=== PATIENT | male | born 1965 | race Caucasian/White ===

== ENCOUNTER → 2016-11-29 | Outpatient (CLI) | payer BC ==
[~2016-11-29] MED LIST: METO-217 PO; PRVC/40 PO; WARF10TA4 PO
[2016-12-01 15:13] LABS: LEAD BLOOD 3 MCG/DL (0-9)
== END | disposition home or self-care (01) ==
LOC: C.LAB 09:16
PROVIDERS: ATTEND Internal Medicine
DX: E78.5 Hyperlipidemia, unspecified (principal); R20.0 Anesthesia of skin

== ENCOUNTER → 2016-12-06 | Outpatient (CLI) | payer BC | END | disposition home or self-care (01) | LOC: C.PATHSPEC 17:40 | PROVIDERS: ATTEND Dermatology | DX: L57.0 Actinic keratosis (principal) ==

== ENCOUNTER → 2017-11-29 | Outpatient (CLI) | payer OTHER ==
--- NOTE | 2017-11-29 14:42 | DIAGNOSTIC IMAGING REPORT ---
CHEST 2 VIEWS ROUTINE CLINICAL HISTORY: R06.02 Shortness of breath on exertion dyspnea COMPARISON STUDY: No previous studies for comparison. FINDINGS: The bones soft tissues and hemidiaphragms are normal. The cardiomediastinal silhouette is normal. The lungs are clear. The pulmonary vasculature is normal. IMPRESSION: Negative chest. The above report was generated using voice recognition software. It may contain grammatical, syntax or spelling errors. Electronically signed by: Homar Montanez M.D. 11/29/2017 2:41 PM Dictated Date/Time: 11/29/2017 2:40 PM
== END | disposition home or self-care (01) ==
LOC: C.LAB1850 14:29
PROVIDERS: ATTEND Internal Medicine
DX: R06.02 Shortness of breath (principal)

== ENCOUNTER 2022-11-08 06:49 | Observation (INO) ==
--- NOTE | 2022-10-10 14:44 | PAT Medication Instructions ---
Medication Instructions Date of Service October 10, 2022 Home Medications Medication Instructions Recorded warfarin 10 mg tablet See Rx Instructions PO UD #90 tabs 06/02/22 warfarin 2.5 mg tablet See Rx Instructions PO UD #50 tabs 06/02/22 Wheeled Walker #1 ea 07/28/22 warfarin 10 mg tablet See Rx Instructions PO UD warfarin 2.5 mg tablet See Rx Instructions PO UD atorvastatin 20 mg tablet (Lipitor) 20 mg PO QPM metoprolol succinate 25 mg tablet,extended release 24 hr 12.5 mg PO QAM ASK your prescriber and surgeon warfarin 10 mg tablet See Rx Instructions PO UD warfarin 2.5 mg tablet See Rx Instructions PO UD Take morning of surgery With a small sip of water, OTHERWISE NOTHING TO EAT OR DRINK AFTER MIDNIGHT: metoprolol succinate 25 mg tablet,extended release 24 hr 12.5 mg PO QAM Take evening before surgery atorvastatin 20 mg tablet (Lipitor) 20 mg PO QPM Other Notes If you have any questions please call us at [phone] or [phone] or [phone] or [phone]
--- NOTE | 2022-10-18 10:19 | Anesthesiology Consultation ---
Date of Service October 18, 2022 Assessment & Plan (1) Encounter for pre-operative examination: - Check coags AM DOS (warfarin instructions per surgeon/prescriber/coag clinic) - COVID screening: Per assessment on 10/18: No known COVID-19 positive contacts or current COVID-19 related symptoms. Travel screen negative. Patient vaccinated. Patient was Covid positive 08/11/22 (home test). Symptoms at time: fatigue, "flu-like" symptoms > resolved. Prescribed Paxlovid by PCP. Preop Covid test done at [facility] 10/18/22 was negative. - Outpatient joint assessment: Pt currently scheduled for inpatient pathway. If surgeon requests review for outpatient joint pathway, patient is not recommended candidate for outpatient joint program from anesthesia standpoint. - PCP visit (02/22/22): "Patient is overall medically stable but unfortunately has not been compliant with diet or exercise to help with weight loss. Stressed the importance of losing weight.. Recommend continue current medications at this time. Follow-up in 1 year or as needed... Cerebellar CVA and small occipital CVA September 2012-presumed etiology paroxysmal atrial fibrillation versus patent foramen ovale -continue current medical treatment. Continue anticoagulation therapy. Denies any significant bleeding complications. States he is compliant with treatment. He is followed by anticoagulation clinic.. Dilated aortic root-noted on stress echo October 18, 2017. Repeat echo during the summer of 2018 did not suggest any dilated aortic root.Echo 01/29/2021normal left ventricular systolic function, ejection fraction 55 to 60%, borderline aortic root dilatation, mildly dilated ascending aorta (4.2 cm)no change compared to study in 2019.. Paroxysmal atrial fibrillation-as noted above discussed his anticoagulation. Patient is compliant with treatment. Followed by the anticoagulation clinic. No significant bleeding complications. Patient denies palpitations or chest pain." Chart Review Chart Review: Acceptable Risk for Surgery and Patient seen in Pre Admission Te sting Teaching & Discussion Pre-Anesthesia Teaching/Discussion Notes: Instructed NPO after midnight before surgery,except medications with 15 cc of water. Medication instructions provided according to the [facility] guidelines. History Surgery Operation Date: 11/08/22 08:50 Proposed Procedures p Left Total Knee Arthroplasty - Umesh Blanc MD Height/Weight Height: 6 ft 5 in Weight: 143.6 kg Allergies Allergy/AdvReac Type Severity Reaction Status Date / Time No Known Allergies Allergy NONE Verified 10/10/22 13:35 Medications Home Medications Medication Instructions Recorded Confirmed Last Taken warfarin 10 mg tablet See Rx Instructions PO UD #90 tabs 06/02/22 10/10/22 Unknown warfarin 2.5 mg tablet See Rx Instructions PO UD #50 tabs 06/02/22 10/10/22 Unknown Wheeled Walker #1 ea 07/28/22 09/20/22 Unknown atorvastatin 20 mg tablet (Lipitor) 20 mg PO QPM 10/10/22 10/10/22 Unknown metoprolol succinate 25 mg 12.5 mg PO QAM 10/10/22 10/10/22 Unknown tablet,extended release 24 hr Past Medical History Medical History Asthma No active inhalers Degenerative joint disease of left knee History of COVID-19 07/2022 (home test)- fatigue, "flu-like" symptoms > resolved Hyperlipidemia Morbid obesity Obstructive sleep apnea No device Paroxysmal atrial fibrillation Taking beta prince/warfarin, managed by PCP Patent foramen ovale Taking warfarin Stroke 2012, no deficits Taking warfarin Tinea versicolor Exercise / Class Metabolic Activity II 4-5 Yardwork/Stairs/Walk up hill (one FS (no CP, no SOB)) Past Family History Family History Mother Breast cancer Other No significant family history Denies family history of Ovarian cancer Prostate cancer Coronary heart disease Colorectal cancer Past Surgical History Surgical History History of anesthesia reaction Slow to wake History of colonoscopy History of tonsillectomy History of tooth extraction WISDOM TEETH Hx of arthroscopy of right knee S/P scrotal varicocelectomy Past Anesthesia History No Family Hx of Anesthesia Complications and Other ("slow to wake") History of PONV No Hx of PONV and No Hx of Motion Sickness Social History Smoking Status: Never smoker Do You Dip or Chew Tobacco: No Hx Alcohol Use: Yes Alcohol type: hard liquor alcohol intake frequency: other (1-2 times/month) Hx Substance Use: No substance use type: does not use Review of Systems Patient denies chest pain, shortness of breath, dyspnea on exertion, fever, chills, cough, wheezing, palpitations. Physical Exam Vital Signs VITALS BP 105/70 P 70 TEMP 98.1 SP02 95%RA RESP 18 PHYSICAL Full cervical extension range of motion. Full TMJ range of motion. TMD 3 finger breaths Mallampati Score 2 Dentition: intact, possible crown (left upper side) Lungs: clear throughout to auscultation Cardiac: regular rate and rhythm, no murmurs noted Spine: normal Carotid arteries: negative bruit Extremities: no LE edema Lab Results Anesthesia Preop Results Results Anesthesia Widget: WBC 7.12 K/ul (4.8-10.8) 10/18/22 Hgb 14.7 g/dl (14.0-18.0) 10/18/22 Hct 43.7 % (42.0-52.0) 10/18/22 Plt 241 K/uL (130-400) 10/18/22 Na 139 mmol/L (136-145) 10/18/22 K 4.0 mmol/L (3.5-5.1) 10/18/22 Cl 108 mmol/L (98-107) H 10/18/22 CO2 25 mmol/L (21-32) 10/18/22 BUN 17 mg/dl (6-23) 10/18/22 Creat 0.92 mg/dl (0.6-1.4) 10/18/22 Glucose Level 91 mg/dl (70-99(Fasting)) 10/18/22 PT 30.0 Seconds (9.0-12.0) H 10/18/22 PTT 41.0 Seconds (21.0-31.0) H* 10/18/22 INR 2.9 (0.9-1.1) H 10/18/22 TSH 2.349 uIu/ml (0.300-4.500) 10/18/22 HA1c 5.7 % (4.5-5.6) H 10/18/22 Urine Color Yellow 10/18/22 Urine Appearance Clear (Clear) 10/18/22 Urine pH 5.5 (4.5-7.5) 10/18/22 Urine Specific [place] 1.023 (1.000-1.030) 10/18/22 Urine Protein Negative (Negative) 10/18/22 Urine Glucose (UA) Negative (Negative) 10/18/22 Urine Ketones Negative (Negative) 10/18/22 Urine Blood Negative (Negative) 10/18/22 Urine Nitrite Negative (Negative) 10/18/22 Urine Bilirubin Negative (Negative) 10/18/22 Urine Urobilinogen Negative (Negative) 10/18/22 Urine Leukocyte Esterase Negative (Negative) 10/18/22 Blood Type A Positive 10/18/22 Antibody Screen NEGATIVE 10/18/22 Testing Electrocardiogram Date: 10/18/22 SB at 56bpm. LAD. Minimal voltage criteria for LVH, may be normal variant. No significant change compared to 02/26/2009 per enrollment nurse comparison. Chest X-Ray Date: 10/18/22 FINDINGS: Cardiac silhouette is enlarged. No pneumothorax, pleural effusion, airspace consolidation or pulmonary edema. Degenerative changes of the shoulders and spine. IMPRESSION: No acute process. Echocardiogram Date: 01/29/21 EF 55 to 60%.No regional motion abnormality. Grade 1 diastolic dysfunction. Borderline concentric LVH. Borderline aortic root dilatation. Mildly dilated ascending aorta (4.2 cm in diameter). Compared with prior study 10/01/2018, no significant change per report.
--- NOTE | 2022-10-25 12:37 | History & Physical Report ---
Date of Service October 25, 2022 Assessment & Plan (1) Degenerative joint disease of left knee: Extensively about treatment options. After extensive discussion regarding proceed with definitive treatment/arthroplasty. We talked about partial versus full knee replacement. I think he is a good candidate for partial knee replacement. At this point we will proceed with a partial knee. If we get in there is too bad we will do a full knee replacement. The risks and benefits of partial and full knee replacement explained the patient could not limited DVT PE infection neurological and vascular bleeding palm pain limb range of motion is fairly of symptoms incomplete relief. Need for further surgery in the future etc. The patient understands and desires to proceed. Informed consent is obtained. He will need to stop his Coumadin 5 days preop. He will follow back with us 2 weeks postop. Will use Coumadin for DVT prophylaxis. History of Present Illness Chief Complaint: . Progressive left medial knee pain and discomfort. Primary Care Provider: Michael Sutherland MD . 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 Several year history of increasing left knee pain discomfort is gradually gotten worse over time. I have been following for the past year to year and a half treating him with injections which become less successful over time. Pain is mostly all medial. Increased with weightbearing. Increased going up and down steps. It is affecting his quality life and leno lity to maintain an active lifestyle. He would like to have his knee fixed. Patient does have multiple medical comorbidities including history of paroxysmal atrial fibrillation on Coumadin along with a mini stroke about 10 years ago without sequelae. Allergies Allergy/AdvReac Type Severity Reaction Status Date / Time No Known Allergies Allergy NONE Verified 10/10/22 13:35 Home Medications Medication Instructions Recorded Confirmed Type warfarin 10 mg tablet See Rx Instructions PO UD #90 tabs 06/02/22 10/10/22 Rx warfarin 2.5 mg tablet See Rx Instructions PO UD #50 tabs 06/02/22 10/10/22 Rx Wheeled Walker #1 ea 07/28/22 09/20/22 Rx atorvastatin 20 mg tablet (Lipitor) 20 mg PO QPM 10/10/22 10/10/22 History metoprolol succinate 25 mg 12.5 mg PO QAM 10/10/22 10/10/22 History tablet,extended release 24 hr Past Med/Surg History Medical History Asthma No active inhalers Degenerative joint disease of left knee History of COVID-19 07/2022 (home test)- fatigue, "flu-like" symptoms > resolved Hyperlipidemia Morbid obesity Obstructive sleep apnea No device Paroxysmal atrial fibrillation Taking beta prince/warfarin, managed by PCP Patent foramen ovale Taking warfarin Stroke 2012, no deficits Taking warfarin Tinea versicolor Surgical History History of anesthesia reaction Slow to wake History of colonoscopy History of tonsillectomy History of tooth extraction WISDOM TEETH Hx of arthroscopy of right knee S/P scrotal varicocelectomy Family History Mother Breast cancer Other No significant family history Denies family history of Ovarian cancer Prostate cancer Coronary heart disease Colorectal cancer Social History Smoking Status: Never smoker Second Hand Exposure: Yes (hx-growing up); Do You Dip or Chew Tobacco: No; Hx Alcohol Use: Yes Alcohol type: hard liquor Hx Substance Use: No Preferred Language: Iraqi Communication Ability: Effective Hearing Ability: Normal Bundle Breaker Required: No Beliefs That Will Affect Care: None Current Living Situation: Spouse and Family current occupational status: employed Feels Safe at Home: Yes Childhood Exposure to Second-Hand Smoke: Yes Diet: regular caffeine: Yes Dental Care, Regularly: Yes Physical Activity Frequency: Does not Exercise Seatbelt Use: always Sunscreen Use: Yes (sometimes) Assistive Devices: Contacts and Glasses Review of Systems All systems reviewed & are unremarkable except as noted in HPI & below. Physical Exam . Physical examination of the left knee reveals patient ambulates independently. He has a slight varus alignment to his knee. Small knee e ffusion. He is tender over the medial joint line. Range of motion 0-1 25. Is got good endpoint to his Florin no pivot. No varus or valgus instability. Heather's causes pain but no obvious mechanical symptoms. He is got painless hip motion. Results & Data Results & Data Laboratory Results . Diagnostic Findings . X-rays of the left knee were reviewed. Shows advanced medial compartment arthritis Feese complete loss of his medial joint space. The lateral compartment is pretty well-preserved. Fairly mild patellofemoral disease. I stressed that exam reveals opening in the medial side and well-maintained lateral compartment. PG Care Time/CCT Total # of Minutes Spent Total Time Spent with Patient: Total time spent is greater than 50% in coordination of care (as documented) at patient's floor/unit and/or counseling patient: Coding Level of Care Code None Diagnoses Degenerative joint disease of left knee M17.12
[~2022-11-08 06:49] MED LIST changes: +ACETAMINOPHEN 500 MG TAB PO SCH; +BUPIVACAINE LIPOSOME/PF 266 MG, BUPIVACAINE/EPINEPHRINE 50 ML, SODIUM CHLORIDE 0.9% PF ... INFIL SCH; +CeleBREX 200 MG CAP PO SCH; +FAMOTIDINE 20 MG TAB PO SCH; +LR 500ML BOLUS, THEN 15ML/HR IV SCH; -METO-217 PO; +METOCLOPRAMIDE HCL 10 MG TABLET PO SCH; -PRVC/40 PO; +ROPIVACAINE 0.5% 5 MG/ML 30 ML VIAL ONE; +Scopolamine 1 MG TDSY TD SCH; +TRANEXAMIC ACID 1,000 MG **IV Intra-op IV SCH; -WARF10TA4 PO; +dexAMETHasone**PF** 10 MG/ML VIAL IV SCH
--- NOTE | 2022-11-08 06:53 | History & Physical Bridge Note ---
Date of Service November 08, 2022 History & Physical Bridge Note I have examined the patient, reviewed the History & Physical and in the interval since the performance of the History & Physical I have noted the following changes of clinical significance: no changes noted
[2022-11-08 07:39] LABS: Partial Thromboplastin Ratio 0.9; Partial Thromboplastin Time 26.1 Seconds (21.0-31.0); Prothrombin Time 11.4 Seconds (9.0-12.0)
[2022-11-08] MEDS ORDERED: MIDAZOLAM HCL 1 MG/ML 2ML VIAL ONE (07:54)
[2022-11-08] MEDS ORDERED: HYDROmorphone INJ 1 MG/ML SYRINGE IV PRN (08:27)
[2022-11-08] MEDS ORDERED: ATROPINE SULFATE 0.1 MG/ML 10ML SYR IV PRN (08:27)
[2022-11-08] MEDS ORDERED: ePHEDrine sulfate 50 MG/ML AMP IV PRN (08:27)
[2022-11-08] MEDS ORDERED: ONDANSETRON INJ 2 MG/ML 2 ML VIAL IV PRN ×2 (08:27→12:02)
[2022-11-08] MEDS ORDERED: PROPOFOL IV EMULSION 10 MG/ML 20 ML VIAL IV ONE ×5 (08:28→10:19)
[2022-11-08] MEDS: LR 60ML/HR IV SCH ×2 (08:30→10:50)
[2022-11-08] MEDS ORDERED: BUPIVACAINE/EPINEPHRINE 0.25% 1:200,000 30 ML VIAL ONE (08:33)
[2022-11-08] MEDS ORDERED: BUPIVACAINE LIPOSOME 1.3% 266 MG/20 ML VIAL ONE (08:34)
[2022-11-08] MEDS ORDERED: SODIUM CHLORIDE 0.9% PF 50 ML VIAL ONE (08:34)
[2022-11-08] MEDS ORDERED: KETAMINE 50 MG/5 ML SYRINGE ONE (09:12)
[2022-11-08] MEDS ORDERED: GLYCOPYRROLATE 0.2 MG/ML VIAL ONE (10:19)
[2022-11-08] MEDS ORDERED: ONDANSETRON INJ 2 MG/ML 2 ML VIAL ONE (10:19)
--- NOTE | 2022-11-08 10:51 | Operative Report ---
PG Post Operative Report Pre & Post Diagnosis Operation Date: 11/08/22 08:40 Pre-Op Diagnosis: Left Knee Degenerative Joint Disease Post-Op Diagnosis: Left Knee Degenerative Joint Disease I identified the patient and participated in the time-out.: Yes Procedure Operation Date: 11/08/22 08:40 Actual Procedures p Total Knee Arthroplasty(Left) - Umesh Blanc MD Surgeon Umesh Blanc MD Eight Section Blower Willi Hong PA-C Estimated Blood Loss 50 Findings Consistent with Post-Op Diagnosis Operative findings were advanced left knee medial compartment DJD with grade 4 [id number] disease. He did have some grade 3 and some spotty grade 4 changes the patellofemoral joint and some grade 2-3 changes in the lateral compartment. Considering this and his large size we elected proceed with a full knee replacem ent as opposed to the partial knee replacement Specimens Left knee sent for pathology Anesthesia Type Spinal MAC Complications none Disposition Accompanied Patient To Recovery: No Indications Patient is a 57-year-old fairly large gentleman is had a several year history of progressive increasing left knee pain discomfort. Is been through extensive conservative treatment which became less successful over time. X-rays show progressive left knee arthritis. His symptoms all localized the medial side of his knee and his x-rays showed mostly medial compartment disease. We were considering partial knee replacement but on the intraoperative examination and he had significant patellofemoral and some lateral compartment disease so we elected proceed with total knee arthroplasty. Description of Procedure Operative implants consist of: 1 Biomet Vanguard size 75 left posterior stabilized femoral component. 2. Biomet size 83 tibial tray. 3. 14 mm posterior stabilized polyethylene insert. 4. 34 x 8 and half all poly patella. The patient was taken to the op room, identified, and placed on the operating table supine position. All contact areas were appropriately padded. IV antibiotics tried by anesthesia team. A spinal anesthetic and abductor canal block had provided holding area. The left thigh tent was then placed. Left lower extremities then prepped and draped in usual sterile fashion. The left leg was elevated exsanguinated with use of an Esmarch in terms playset 300 mmHg. An anterior approach the left knee was then performed through a longitudinal incision centered over the patella. Sharp dissection was carried through subcutaneous tissue down the extensor mechanism. Medial parapatellar arthrotomy incision was made. Some subperiosteal dissection was carried out medially. The fat pad was resected from Neath patella tendon. The lateral patellofemoral ligament was released. Patella subluxated laterally and the knee was flexed with the osteophytes taken on distal femur. The ACL and PCL were then released from distal femur and the tibia subluxated anteriorly. The external tibial alignment jig was then placed in the interface the tibia and adjusted 14 mm medially. Proximal tibial cut was made to take about a millimeter or 2 of bone from most deficient aspect medial tibial plateau. The tibia sized to a size 83. We did remove stable osteophytes medially and posterior medially. Attention drawn the femur. The distal femur during the sharp drop with intramedullary canal was suction. A left 6 degree valgus cutting guide was placed. Distal femoral cutting block was pinned in place. Distal femoral cut was made to take an additional 3 mm of bone off distal femur. The femur was then sized to a size 75. It did have to be downsized almost an entire size. It was probably three quarters the way between the 75 and the 80 implant. The AP cutting block was pinned parallel to the epicondylar axis which was 4 degrees of external rotation. Anterior cut, anterior chamfer, posterior cut, posterior chamfer cuts were made for the box cutting guide was placed in a just slightly laterally. The box cut was made. The knee was flexed. The remnants of the medial lateral menisci were excised. The osteophytes taken off the posterior aspect the femur. A trial femoral component was placed. Tibial tray was pinned in maximum external rotation and the drill and stem punch were used to create defect in proximal tibia for the tibial tray. Knee was then trialed and the 14 mm insert fit most appropriately. Attention drawn the patella. The patella was cleaned of all soft tissues. Patella thickness measured 23 mm in thickness and was cut down to 14. Was sized to a size 34 patella. The lug holes were drilled for the 34 patella. The lateral osteophyte was removed. Patella button was placed. Knee was taken through range of motion and the patella tracked nicely with no thumbs test. Attention drawn to placing permanent components. Nupathe all trial components were removed. Bone plug was placed into the skin and the limit blood loss. Double batch Palacos G cement was mixed. [employer] size 75 left posterior stabilized femoral component, size 83 tibial tray, a 14 mm posterior stabilized polyethylene insert, and a 34 x 8 and half all Paller patella then cemented in place. The knee was brought out into full extension till cement hardened. Final cement check was then performed. Pericapsular tissues were injected with total 100 cc of combination of 20 cc of Exparel, 30 cc normal saline, 50 cc of quarter percent Marcaine with epinephrine. Patient did receive 1 g of tranexamic acid. The tourniquet was then let down for final tourniquet time was 63 minutes. Hemostasis assured use electrocautery. Extensor mechanism then closed with combination of 1 PDS suture #1 Vicryl suture in a [id number] fashion. The extensor mechanism checked found to be intact and the subcutaneous tissue then closed with 2 Dexon suture in a buried interrupted fashion and the skin was closed skin jordon. Leg was then cleaned and dried and sterile dressed with Xeroform, 4 fours, sterile cast padding, Baljit bandage were applied. Patient then transferred to the recovery room in stable condition. Patient tolerated procedure well and there were no complications. Willi Hong, my physician ex assistant/program director, was present for the entire procedure. His assistance was essential and required for appropriate patient positioning, prepping and draping, surgical exposure, performing the technical details of the operation, placement the implants, closure of the wound, and placement of the sterile bandage. I attest to the content of the Intraoperative Record and any orders documented therein. Any exceptions are noted below.
--- NOTE | 2022-11-08 11:10 | XRay Report ---
LEFT KNEE 2 VIEWS History: Left total knee arthroplasty. Degenerative arthritis. Postop. FINDINGS: The patient is status post a left total knee arthroplasty. The hardware is intact. No fract ure or dislocation. Skin jordon are in place. IMPRESSION: Left total knee arthroplasty. No evidence for hardware complication. ACT 112: Negative or not required by law. Electronically signed by: Juan Francisco iPerre M.D. 11/08/2022 11:09 AM
[2022-11-08] MEDS ORDERED: bisacodyL 10 MG SUPP PR PRN (12:02)
[2022-11-08] MEDS ORDERED: ALUMINUM/MAGNESIUM SUSP 30 ML UDC PO PRN (12:02)
[2022-11-08] MEDS ORDERED: MAGNESIUM HYDROXIDE SUSP 30 ML UDC PO PRN (12:02)
[2022-11-08] MEDS ORDERED: METOCLOPRAMIDE HCL INJ 5 MG/ML 2 ML VIAL IV PRN (12:02)
[2022-11-08] MEDS ORDERED: diphenhydrAMINE Capsule 25 MG CAP PO PRN (12:02)
[2022-11-08] MEDS ORDERED: NALOXONE HCL 0.4 MG/1 ML VIAL/CARP IV PRN (12:02)
[2022-11-08] MEDS ORDERED: HYDROmorphone INJ 0.5 MG/0.5 ML SYR IV PRN (12:02)
[2022-11-08] MEDS: KETOROLAC 30 MG/ML VIAL IV SCH ×3 (12:21→23:50)
[2022-11-08] MEDS: SODIUM CHLORIDE 0.9% 1000ML 1,000 ML IV SCH ×2 (12:45→22:26)
--- NOTE | 2022-11-08 13:23 | Anesthesiology Progress Note ---
Date of Service November 08, 2022 Anesthesia Post Procedure Vital Signs Vital Signs: Temp Pulse Pulse Resp BP Pulse Ox O2 Del Method 11/08/22 12:32 60 16 117/77 97 Room Air 11/08/22 12:02 36.4 C L 50 L 16 115/75 97 Room Air 11/08/22 11:55 58 L 14 110/72 95 Room Air 11/08/22 11:45 51 L 14 104/73 96 Room Air 11/08/22 11:35 52 L 13 109/73 96 Room Air 11/08/22 11:25 36.4 C L 58 L 12 111/72 100 Oxymask 11/08/22 11:15 56 L 12 104/74 100 Oxymask 11/08/22 11:05 61 17 96/64 L 96 Oxymask 11/08/22 10:55 65 20 98/65 L 95 Oxymask 11/08/22 10:48 36 C L 71 24 100/66 95 Oxymask 11/08/22 07:39 Room Air 11/08/22 07:39 36.5 C 64 20 112/75 95 Room Air O2 Flow Rate 11/08/22 12:32 11/08/22 12:02 11/08/22 11:55 11/08/22 11:45 11/08/22 11:35 11/08/22 11:25 2 11/08/22 11:15 4 11/08/22 11:05 6 11/08/22 10:55 10 11/08/22 10:48 10 11/08/22 07:39 11/08/22 07:39 Pain Intensity Left Knee: Pain Intensity: 5 Transfer of Care Handoff Completed per policy Notes Mental Status: alert / awake / arousable Patient Amnestic to Procedure: Yes Nausea / Vomiting: adequately controlled Pain: adequately controlled Airway Patency, RR, SpO2: stable & adequate BP & HR: stable & adequate Hydration State: stable & adequate Neuraxial Anesthesia: was administered and sensory block is resolving Anesthetic Complications: no major complications apparent
[2022-11-08] MEDS: oxyCODONE HCL IR 5 MG TAB (IMMEDIATE RELEASE) PO PRN (13:39)
[2022-11-08] MEDS: ACETAMINOPHEN 500 MG TAB PO SCH ×2 (15:02→20:50)
[2022-11-08] MEDS ORDERED: WARFARIN SOD 10 MG TAB PO ONE (16:00)
[2022-11-08] MEDS ORDERED: TRANEXAMIC ACID / 0.7% NACL 1,000 MG/100 ML BAG IV SCH (16:45)
[2022-11-08] MEDS: Scopolamine CHECK PATCH PLACEMENT SCH ×2 (17:01→23:50)
[2022-11-08] MEDS: ASCORBIC ACID 500 MG TAB PO SCH (17:02)
[2022-11-08] MEDS: ceFAZolin 2000MG 2,000 MG/15 ML SYR IV SCH ×2 (17:05→23:50)
[2022-11-08] MEDS: DOCUSATE SODIUM 100 MG CAP PO SCH (20:50)
[2022-11-08] MEDS ORDERED: ATORVASTATIN 20 MG TAB PO SCH (21:00)
[2022-11-08] MEDS ORDERED: SENNA 8.6 MG TAB PO SCH (21:00)
[2022-11-08] MEDS: SENNA 8.6 MG TAB PO SCH (22:47)
[2022-11-09] MEDS: KETOROLAC 30 MG/ML VIAL IV SCH (05:40)
[2022-11-09 07:13] LABS: Hematocrit (blood only) 36.4 % (42.0-52.0); Hemoglobin 12.2 g/dl (14.0-18.0); Mean Corpuscular Hemoglobin 28.9 pg (25.0-34.0); Mean Corpuscular Hgb Conc 33.5 g/dL (32.0-36.0); Mean Corpuscular Volume 86.3 fL (80.0-100.0); Mean Platelet Volume 9.7 fL (9.4-12.4); Platelet Count 209 K/uL (130-400); RDW Coefficient of Variation 13.3 % (11.5-14.5); RDW Standard Deviation 41.8 fL (36.4-46.3); Red Blood Count 4.22 M/uL (4.70-6.10); White Blood Count 15.13 K/ul (4.8-10.8)
[2022-11-09] MEDS: Scopolamine CHECK PATCH PLACEMENT SCH (07:32)
[2022-11-09 07:34] LABS: Calcium 8.6 mg/dl (8.6-10.3); Creatinine Clr Calc Pharmacy 126.9 ml/min; Est GFR (African American) 95.7 ml/min; Est GFR (Non-African American) 82.6 ml/min
[2022-11-09 07:41] LABS: Prothrombin Time 11.4 Seconds (9.0-12.0)
[2022-11-09] MEDS: oxyCODONE HCL IR 5 MG TAB (IMMEDIATE RELEASE) PO PRN ×2 (07:41→14:09)
[2022-11-09] MEDS ORDERED: dexAMETHasone 10 MG in SYRINGE 0 ML IV SCH (08:00)
[2022-11-09] MEDS: DOCUSATE SODIUM 100 MG CAP PO SCH (08:31)
[2022-11-09] MEDS: ACETAMINOPHEN 500 MG TAB PO SCH (08:31)
[2022-11-09] MEDS: ASCORBIC ACID 500 MG TAB PO SCH (08:31)
[2022-11-09] MEDS: SENNA 8.6 MG TAB PO SCH (08:32)
[2022-11-09] MEDS ORDERED: WARFARIN SOD 10 MG TAB PO ONE ×3 (08:57→16:00)
[2022-11-09] MEDS ORDERED: TAMSULOSIN HCL 0.4 MG CAP PO SCH (09:00)
[2022-11-09] MEDS ORDERED: MULTIVITAMIN TAB PO SCH (09:00)
[2022-11-09] MEDS ORDERED: METOPROLOL SUCC 25MG EXT REL TAB PO SCH (09:00)
--- NOTE | 2022-11-09 09:27 | Orthopedic Progress Note ---
Date of Service November 09, 2022 Assessment & Plan (1) Status post left knee replacement: 1. PT OT. Weight-bear as tolerated. Left total knee protocol. 2. Pain control. Doing well with current pain regimen. 3. DVT prophylaxis including thigh-high teds SCDs and started back on his Coumadin last evening. We will start him on some prophylactic dose Lovenox starting 24 hours postop until his Coumadin is more therapeutic. 4. Disposition plan to discharge home with some home health. We will see how therapy goes today. Subjective . 57-year-old gentleman postop day 1 from left knee replacement. He is doing quite well. Pain is controlled. No chest pain or shortness of breath. Not feeling dizzy or lightheaded. Hoping to go home today. Review of Systems All systems reviewed & are unremarkable except as noted in HPI & below. Physical Exam . Physical examination was a pleasant middle-age male. Sitting in his bedside chair looks completely comfortable. Examination left leg reveals the leg to be well aligned. Dressing is clean dry and intact. He can dorsiflex and plantarflex his foot appropriately. He is neurologically intact. Respiratory normal respiratory effort, lungs clear to auscultation Cardiovascular RRR, no murmur, no edema Gastrointestinal (Abdomen) normal bowel sounds, soft, nontender, no hepatosplenomegaly Results & Data Results & Data Laboratory Results . Hemoglobin 12.2. Hematocrit 36.2. Electrolytes are stable. Diagnostic Findings . PG Care Time/CCT Total # of Minutes Spent Total Time Spent with Patient: Total time spent is greater than 50% in coordination of care (as documented) at patient's floor/unit and/or counseling patient: Coding Level of Care Code 22977 Post Operative Follow-Up Diagnoses Status post left knee replacement Z96.652
[2022-11-09] MEDS ORDERED: ENOXAPARIN INJ 30 MG/0.3 ML SYR SQ SCH (11:00)
[2022-11-09] MEDS ORDERED: Nursing to Pharmacy Communication SCH (14:00)
--- NOTE | 2022-11-11 07:49 | Discharge Summary ---
Date of Service November 11, 2022 Discharge Data Procedures Performed Operation Date: 11/08/22 08:40 Actual Procedures p Total Knee Arthroplasty(Left) - Umesh Blanc MD Hospital Course (1) Status post left knee replacement: This is a 57 year old patient admitted on 11/08/22 and underwent total knee arthroplasty. He tolerated the procedure well and there were no complications. Transferred to the PACU post op and later to the orthopedic floor for further care. He was given ancef for antibiotic prophylaxis. He was also given RUSSEL stockings, SCDs, and coumadin/lovenox for DVT prophylaxis. Hemoglobin, hematocrit, and vital signs were monitored during his hospital stay and remained stable. Did not require any blood transfusions. There were no complications during his hospital stay. By post op day #1 the patient was tolerating a regular diet, pain was reasonably controlled with oral pain medicine, and he was participating in physical therapy. On post op day #1 the patient was discharged home and set up with home health care. He was given printed discharge instructions including prescriptions for extra strength tylenol, zofran, oxycodone, senokot, flomax, and lovenox. Continue coumadin. Continue physical therapy, weight bearing as tolerated. Continue RUSSEL stockings. Follow up approximately 2 weeks post op or sooner if there are problems or concerns. Coding Level of Care Code None Diagnoses Status post left knee replacement Z96.652
== END 2022-11-09 14:47 | disposition home health service (06) ==
LOC: 3E 06:49 → ASU 06:49